=== PATIENT | female | born 1950 | race Caucasian/White ===

== ENCOUNTER 2019-06-19 14:41 | Emergency (ER) | payer MEDICARE, OTHER, SELFPAY ==
[2019-06-19 14:55] VITALS: BP 133/75; PULSE 100; RESP 20; TEMP 36.9; O2SAT 98
--- NOTE | 2019-06-19 15:08 | ED.EYEPROB ---
HPI - Eye Problem General Chief complaint: Eye Problems Stated complaint: right eye Time Seen by Provider: 06/19/19 15:01 Source: patient and RN notes reviewed Mode of arrival: ambulatory Limitations: no limitations History of Present Illness HPI Narrative: Patient presents today complaining of redness, swelling, and pain to her right upper eyelid since yesterday. This has significantly worsened since onset. Denies drainage, redness of the eye, vision changes. She has tried no [id number] interventions prior to arrival. MD chief complaint: eye pain Related Data Home Medications Medication Instructions Recorded Confirmed alprazolam 0.5 mg PO BID PRN 06/19/19 06/19/19 lisinopril-hydrochlorothiazide 1 tablet PO DAILY 06/19/19 06/19/19 meloxicam 15 mg PO DAILY 06/19/19 06/19/19 Allergies Allergy/AdvReac Type Severity Reaction Status Date / Time No Known Allergies Allergy Verified 06/19/19 15:02 Review of Systems Review of Systems: Narrative: CONSTITUTIONAL: Denies body aches, fever, chills, or sweats. EYES: Denies visual changes, redness, or discharge. Redness, swelling, and pain to the right upper eyelid ENT: Denies rhinorrhea, congestion, sore throat, or otalgia. CARDIOVASCULAR: Denies chest pain, palpitations, or edema. RESPIRATORY: Denies cough or dyspnea. GASTROINTESTINAL: Denies abdominal pain, nausea, vomiting, or diarrhea. GENITOURINARY: Denies dysuria or hematuria. SKIN: Denies rash, itching, or wounds. MUSCULOSKELETAL: Denies back pain, joint pain, or myalgia. NEUROLOGIC: Denies headache, numbness, tingling, or weakness. PSYCH: Denies depression or anxiety. [facility] Past Medical History Medical History (Updated 06/19/19 @ 15:12 by Angelina Morel, COREY, ) Anxiety Glaucoma Hypertension Surgical History Surgical History (Updated 06/19/19 @ 15:10 by Angelina Morel, COREY, ) H/O: hysterectomy History of facelift Comments At time of signature, I have reviewed and agree with nursing past medical, surgical, social and family history unless otherwise noted. Please see nursing chart for further information. There is no relevant family history pertinent to the presenting complaint Exam Narrative: Exam Narrative: GENERAL: Well-appearing, well-nourished, and in no acute distress. HEAD: Normocephalic, atraumatic. EYES: EOMI. PERRL. No redness or drainage of the eye. Conjunctivae normal. Swollen, erythematous, and tender nodule to right upper eyelid consistent with stye. ENT: Mucous membranes pink and moist. . NECK: Normal AROM. CHEST: No respiratory distress. EXTREMITIES: Normal range of motion. No edema. SKIN: Warm, dry, no rash. Capillary refill normal. Normal skin turgor. NEURO: No focal deficits. Alert and oriented x3. Gait steady. PSYCH: Normal affect. No signs of depression or anxiety. Course Vital Signs Vital signs: Vital Signs Temperature 98.4 F 06/19/19 14:55 Pulse Rate 100 06/19/19 14:55 Respiratory Rate 20 06/19/19 14:55 Blood Pressure 133/75 06/19/19 14:55 Pulse Oximetry 98 06/19/19 14:55 Temperature 98.4 F 06/19/19 14:55 Pulse Rate 100 06/19/19 14:55 Respiratory Rate 20 06/19/19 14:55 Blood Pressure 133/75 06/19/19 14:55 Pulse Oximetry 98 06/19/19 14:55 Reviewed. Pt has been instructed to follow up with her PCP regarding her elevated blood pressure today. MDM - Eye Problem Differential Diagnosis Differential diagnosis: Likely corneal abrasion, conjunctivitis, periorbital cellulitis and other (Stye) Critical Care Time Critical Care Time Critical Care Time: No Discharge Plan Discharge Clinical Impression: Hordeolum Qualifiers: Hordeolum type: internum Laterality: right Eyelid: upper Qualified Code(s): H00.021 - Hordeolum internum right upper eyelid Patient Disposition: Home, Self-Care Condition: Stable Instructions: Stye (ED) Additional Instructions: Please use eyedrops as directed. Apply warm compress
== END 2019-06-19 15:15 | disposition home or self-care (01) ==
PROVIDERS: Emergency Provider Nurse Practitioner
DX: H00.021 Hordeolum internum right upper eyelid (principal); F41.9 Anxiety disorder, unspecified; I10 Essential (primary) hypertension; H40.9 Unspecified glaucoma
CPT/HCPCS: 99213; G0463

== ENCOUNTER 2024-01-12 13:06 | Emergency (ER) | payer MEDICARE, OTHER, SELFPAY ==
[2024-01-12 13:15] VITALS: BP 141/65; PULSE 113; RESP 20; TEMP 36.5; O2SAT 98
--- NOTE | 2024-01-12 13:25 | ED.WOUNDLAC ---
HPI - Wound/Laceration General Chief Complaint: Skin/Abscess/Foreign Body Stated Complaint: look at nodule she had removed Time Seen by Provider: 01/12/24 13:22 Source: patient and RN notes reviewed Mode of arrival: ambulatory Limitations: no limitations History of Present Illness HPI narrative: 73-year-old female presents with concern for suture removal. Reports she had a nodule removed from her neck 3 weeks ago and subsequently had sutures placed and removed. Reports says she have the sutures she has felt something there the neck and realize she still has a suture there. She denies drainage from the area. Denies pain. Reports irritation Related Data Home Medications Medication Instructions Recorded Confirmed lisinopril 20 1 tablet PO DAILY 06/19/19 01/12/24 mg-hydrochlorothiazide 12.5 mg tablet spironolactone 25 mg tablet 25 mg PO DAILY 07/27/20 01/12/24 metformin 500 mg tablet mg 01/12/24 semaglutide 1 mg/dose (4 mg/3 mL) 1 mg subcut WEEKLY 01/12/24 01/12/24 subcutaneous pen injector (Ozempic) Allergies Allergy/AdvReac Type Severity Reaction Status Date / Time No Known Allergies Allergy Verified 01/12/24 13:18 Review of Systems Review of Systems: CONSTITUTIONAL: Denies malaise, chills, sweats, or fever. EYES: Denies redness, or discharge. ENT: Denies rhinorrhea, congestion, swollen lips, swollen tongue CARDIOVASCULAR: Denies chest pain, palpitations, or edema. RESPIRATORY: Denies cough or dyspnea. GASTROINTESTINAL: Denies abdominal pain, nausea, vomiting SKIN: Reports retained suture MUSCULOSKELETAL: Denies joint pain or myalgia. NEUROLOGIC: Denies headache. All systems reviewed & are unremarkable except as noted in HPI and below [facility] Past Medical History Medical History (Updated 01/12/24 @ 13:31 by Glory Mcnamara NP) Anxiety Glaucoma Hypertension Surgical History Surgical History (Updated 07/29/20 @ 07:22 by Mark Stein MD) H/O: hysterectomy History of bilateral mastectomy 02/28/2020 History of facelift 1980 Social History Social History (Updated 07/27/20 @ 09:40 by Mana Bullard RN) Smoking status: Unknown if ever smoked Alcohol intake: never Substance use: never Substance use type: does not use Comments At time of signature, agree with nursing past medical, surgical, social and family history. There is no relevant family history pertinent to the presenting complaint Exam Narrative: GENERAL: Well-appearing, well-nourished, and in no acute distress. HEAD: Normocephalic, atraumatic. EYES: PERRLA, conjunctivae clear, and EOMI. ENT: Mucous membranes moist. Oropharynx without edema, erythema or lesions. NECK: Supple. No lymphadenopathy CHEST: Clear to auscultation. No respiratory distress. HEART: Regular rate and rhythm. SKIN: Warm, dry. 0.5 cm area of erythema noted to the left sided neck with retained suture noted NEURO: Alert and oriented x3. PSYCH: Normal mood and affect Course Course Emergency Course: Patient is aware of diagnosis, understands and agrees to treatment plan. Anticipatory guidance given. Patient agrees to follow-up as directed and is aware of reasons to seek care at the emergency department. Portions of this record may have been created with voice recognition software Level of Care: Express Care Visit Vital Signs Vital signs: Vital Signs Temperature 97.7 F 01/12/24 13:15 Pulse Rate 113 H 01/12/24 13:15 Respiratory Rate 20 01/12/24 13:15 Blood Pressure 141/65 H 01/12/24 13:15 Pulse Oximetry 98 01/12/24 13:15 Oxygen Delivery Room Air 01/12/24 13:15 Temperature 97.7 F 01/12/24 13:15 Pulse Rate 113 H 01/12/24 13:15 Respiratory Rate 20 01/12/24 13:15 Blood Pressure 141/65 H 01/12/24 13:15 Pulse Oximetry 98 01/12/24 13:15 Oxygen Delivery Room Air 01/12/24 13:15 Reviewed. MDM - Wound/Laceration MDM Narrative Medical decision making narrative: Verbal consent was obtained. Wound well approximated, no erythema, induration, or discharge noted. One simple interrupted completely removed in a sterile fashion. Patient tolerated procedure well, no complications. Patient advised to look for and return for any signs of infection such as redness, swelling, discharge, or worsening pain. Critical Care Time Critical Care Time Critical Care Time: No Discharge Plan Discharge Clinical Impression: Retained suture Patient Disposition: Home, Self-Care Condition: Stable Instructions: Stitches Removal (ED) Additional Instructions: AFTER the stitches are removed: Clean your wound as directed. Carefully wash your wound with soap and water. Pat the area dry with a clean towel. Protect your wound. Your wound can swell, bleed, or split open if it is stretched or bumped. You may need to wear a bandage that supports your wound until it is completely healed. Prescriptions: No Action metformin 500 mg tablet Ozempic 1 mg/dose (4 mg/3 mL) Pen Injector 1 mg SUBCUT WEEKLY lisinopril-hydrochlorothiazide 20-12.5 mg Tablet 1 tablet PO DAILY spironolactone 25 mg tablet 25 mg PO DAILY Follow-up/Referrals: Abbey,Alexis Tolbert DO [Primary Care Provider] - Time of Disposition: 13:31
== END 2024-01-12 13:33 | disposition home or self-care (01) ==
PROVIDERS: Emergency Provider Nurse Practitioner; PCP Family Medicine
DX: Z48.02 Encounter for removal of sutures (principal); I10 Essential (primary) hypertension
CPT/HCPCS: 99211; G0463